=== PATIENT | female | born 1995 | race African-American/Black ===

== ENCOUNTER 2023-09-01 07:13 | Inpatient (IN) | payer OTHER ==
[2023-09-01 08:26] VITALS: BMI 43.9
[2023-09-01 08:31] LABS: BASO % 0.2 % (0-2.0); EOS % 0.7 % (0-4.5); HEMATOCRIT 35.1 % (32.4-45.2); LYMPH % 22.4 % (8-40); MCH 32.8 pg (25.7-33.7); MCHC 34.2 g/dl (32.0-36.0); MEAN CELL VOLUME 95.9 fl (80-96); MEAN PLT VOLUME 10.3 fl (7.5-11.1); MONO % 7.1 % (3.8-10.2); NEUT % 69.6 % (42.8-82.8); PLATELET COUNT 233 10^3/uL (134-434); RBC 3.66 M/mm3 (3.60-5.2); RDW 13.6 % (11.6-15.6); WHITE BLOOD COUNT 9.5 K/mm3 (4.0-10.0)
[2023-09-01] MEDS: ELECTROLYTE-148 SOLN 1,000 ML IV ONE (08:40)
[2023-09-01 08:42] LABS: INR 1.17 (0.83-1.09); PROTHROMBIN TIME (PATIENT) 13.6 SEC (9.7-13.0)
[2023-09-01 08:57] LABS: POTASSIUM 3.6 mmol/L (3.5-5.1)
[2023-09-01 08:58] LABS: BLOOD UREA NITROGEN 5.6 mg/dL (7-18)
[2023-09-01 09:02] LABS: CREATININE 0.6 mg/dL (0.55-1.3)
[2023-09-01] MEDS: ELECTROLYTE-148 SOLN 1,000 ML IV SCH (09:10)
[2023-09-01 09:17] LABS: ACTIVATED PTT 29.4 SECONDS (25.2-36.5)
[2023-09-01] MEDS ORDERED: OXYTOCIN 30 UNITS in 0.9% NS 30 UNIT/500 ML INFUS.BAG IVPB ONE (09:33)
[2023-09-01] MEDS: OXYTOCIN 30 UNITS in 0.9% NS 30 UNIT/500 ML INFUS.BAG IVPB SCH (10:15)
[2023-09-01] MEDS ORDERED: ELECTROLYTE-148 SOLN 1,000 ML IV SCH ×3 (10:30→20:07)
[2023-09-01 12:12] LABS: HIV INTERPRETATION NEGATIVE (NEGATIVE)
[2023-09-01] MEDS ORDERED: FENTANYL/BUPIVACAINE/NS/PF - PCEA - 50 ML DISP.SYRIN EP ONE (14:11)
[2023-09-01] MEDS ORDERED: FENTANYL CITRATE/PF 50 MCG/ML VIAL ONE ×3 (14:21→19:04)
[2023-09-01] MEDS ORDERED: BUPIVACAINE HCL/PF 0.25% (2.5MG/ML) 10 ML VIAL ONE (14:21)
[2023-09-01] MEDS: FENTANYL/BUPIVACAINE/NS/PF - PCEA - 50 ML DISP.SYRIN EP SCH (14:33)
[2023-09-01] MEDS ORDERED: NALOXONE HCL 0.4 MG/ML VIAL IVPUSH PRN ×2 (14:42→20:07)
[2023-09-01] MEDS ORDERED: OXYTOCIN 20 UNITS in 0.9% NS 20 UNIT/1,000 ML INFUS.BAG IV ONE ×3 (14:44→18:03)
[2023-09-01] MEDS ORDERED: BISACODYL 10 MG SUPP.RECT RC PRN ×4 (14:59→20:07)
[2023-09-01] MEDS ORDERED: WITCH HAZEL 50% (TUCKS) 40 PAD/JAR PAD TP PRN ×3 (14:59→20:07)
[2023-09-01] MEDS ORDERED: BENZOCAINE 20% 57 GM BOTTLE TP PRN (14:59)
[2023-09-01] MEDS ORDERED: BENZOCAINE 28 GM HEMORRHOIDAL OINTMENT TP PRN ×2 (14:59→20:07)
[2023-09-01] MEDS ORDERED: oxyCODONE HCL 5 MG TABLET PO PRN ×2 (14:59→20:07)
[2023-09-01] MEDS ORDERED: IBUPROFEN 600 MG TABLET (FP) PO PRN (14:59)
[2023-09-01] MEDS ORDERED: ACETAMINOPHEN 325 MG TABLET (FP) PO PRN (14:59)
[2023-09-01] MEDS: OXYTOCIN 20 UNITS in 0.9% NS 20 UNIT/1,000 ML INFUS.BAG IV SCH ×2 (15:16→20:15)
[2023-09-01] MEDS: METHYLERGONOVINE MALEATE 0.2 MG/1 ML AMP IM PRN (15:50)
[2023-09-01] MEDS ORDERED: MISOPROSTOL 200 MCG TABLET ONE (15:54)
[2023-09-01] MEDS: ceFAZolin SODIUM 1 GM VIAL IVPB ONE ×2 (16:00→16:58)
[2023-09-01] MEDS: MISOPROSTOL 200 MCG TABLET PR SCH (16:03)
[2023-09-01] MEDS ORDERED: ceFAZolin SODIUM 1 GM VIAL ONE ×2 (16:04→16:55)
[2023-09-01] MEDS ORDERED: METHYLERGONOVINE MALEATE 0.2 MG/1 ML AMP IM PRN ×2 (17:23→20:07)
[2023-09-01] MEDS: TRANEXAMIC ACID 1000 MG/10 ML VIAL IVPUSH ONE (17:28)
[2023-09-01] MEDS ORDERED: MIDAZOLAM HCL 2 MG/2 ML SINGLE DOSE VIAL ONE (17:42)
[2023-09-01] MEDS ORDERED: ONDANSETRON 4 MG/2 ML VIAL IVPUSH PRN ×2 (18:06→20:07)
[2023-09-01] MEDS ORDERED: SUCCINYLCHOLINE CHLORIDE 200 MG/10 ML SYRINGE ONE (18:09)
[2023-09-01] MEDS ORDERED: LACTATED RINGERS SOLUTION 1,000 ML IV SCH ×2 (18:15→20:07)
[2023-09-01] MEDS ORDERED: PROPOFOL 20 ML ONE ×2 (18:32→19:04)
[2023-09-01] MEDS ORDERED: ONDANSETRON 4 MG/2 ML VIAL ONE (18:41)
[2023-09-01 19:46] LABS: BASO % 0.3 % (0-2.0); EOS % 0.1 % (0-4.5); HEMATOCRIT 36.4 % (32.4-45.2); HEMOGLOBIN 12.3 GM/dL (10.7-15.3); LYMPH % 12.4 % (8-40); MCH 32.4 pg (25.7-33.7); MCHC 33.7 g/dl (32.0-36.0); MEAN PLT VOLUME 10.2 fl (7.5-11.1); MONO % 5.7 % (3.8-10.2); NEUT % 81.5 % (42.8-82.8); PLATELET COUNT 214 10^3/uL (134-434); RBC 3.79 M/mm3 (3.60-5.2); RDW 13.5 % (11.6-15.6); WHITE BLOOD COUNT 13.4 K/mm3 (4.0-10.0)
[2023-09-01] MEDS ORDERED: OXYTOCIN 20 UNITS in 0.9% NS 20 UNIT/1,000 ML INFUS.BAG IV SCH ×2 (20:00→20:07)
[2023-09-01] MEDS ORDERED: OXYTOCIN 30 UNITS in 0.9% NS 30 UNIT/500 ML INFUS.BAG IVPB SCH (20:07)
[2023-09-01] MEDS: METHYLERGONOVINE MALEATE 0.2 MG/1 ML AMP IM SCH (20:15)
[2023-09-02 00:20] VITALS: RESP 18
[2023-09-02] MEDS: PROMETHAZINE HCL 25 MG/1 ML VIAL IVPB ONE ×2 (00:29→00:35)
[2023-09-02] MEDS: MISOPROSTOL 200 MCG TABLET PR SCH (00:30)
[2023-09-02] MEDS: BUTORPHANOL TARTRATE 1 MG/ML VIAL IVPB ONE ×2 (00:33→00:35)
[2023-09-02] MEDS: FENTANYL/BUPIVACAINE/NS/PF - PCEA - 50 ML DISP.SYRIN EP SCH (00:37)
[2023-09-02] MEDS: METHYLERGONOVINE MALEATE 0.2 MG/1 ML AMP IM SCH (00:37)
[2023-09-02 08:39] LABS: BASO % 0.1 % (0-2.0); EOS % 0.5 % (0-4.5); HEMATOCRIT 34.6 % (32.4-45.2); HEMOGLOBIN 11.3 GM/dL (10.7-15.3); LYMPH % 11.3 % (8-40); MCH 31.6 pg (25.7-33.7); MCHC 32.7 g/dl (32.0-36.0); MEAN CELL VOLUME 96.6 fl (80-96); MEAN PLT VOLUME 10.7 fl (7.5-11.1); MONO % 7.8 % (3.8-10.2); NEUT % 80.3 % (42.8-82.8); PLATELET COUNT 210 10^3/uL (134-434); RBC 3.58 M/mm3 (3.60-5.2); RDW 13.5 % (11.6-15.6); WHITE BLOOD COUNT 16.1 K/mm3 (4.0-10.0)
[2023-09-02] MEDS: PRENATAL VITAMINS W/ FOLIC ACID TABLET (FP) PO SCH (09:59)
[2023-09-02] MEDS: FERROUS SO4 325 MG TABLET (FP) PO SCH (09:59)
[2023-09-02] MEDS ORDERED: PRENATAL VITAMINS W/ FOLIC ACID TABLET (FP) PO SCH (10:00)
[2023-09-02] MEDS ORDERED: FERROUS SO4 325 MG TABLET (FP) PO SCH (10:00)
[2023-09-02] MEDS: BENZOCAINE/MENTH/CETYLPYRD CL 1 EACH LOZENGE MM PRN (10:09)
[2023-09-02] MEDS: WITCH HAZEL 50% (TUCKS) 40 PAD/JAR PAD TP PRN (10:09)
[2023-09-02] MEDS: BENZOCAINE 20% 57 GM BOTTLE TP PRN (10:10)
[2023-09-02] MEDS ORDERED: SENNOSIDES/DOCUSATE COMBO (SENNA PLUS) TABLET (UD) PO PRN ×2 (22:00)
[2023-09-03] MEDS: IBUPROFEN 600 MG TABLET (FP) PO PRN (08:14)
[2023-09-03 08:50] VITALS: BP 114/69; PULSE 90; TEMP 97.5
[2023-09-03] MEDS: ACETAMINOPHEN 325 MG TABLET (FP) PO PRN (09:39)
== END 2023-09-03 15:00 | disposition home or self-care (01) | DRG 542 ==
LOC: JLDR 07:13 → J3W 21:00
PROVIDERS: ADMIT Obstetrics & Gynecology; ATTEND Obstetrics & Gynecology
PROC: 10D07Z8 Extraction of Products of Conception, Other, Via Natural or Artificial Opening (ICD-10-PCS; 2023-09-01)
PROC: 0W3R7ZZ Control Bleeding in Genitourinary Tract, Via Natural or Artificial Opening (ICD-10-PCS; 2023-09-01)
PROC: 10E0XZZ Delivery of Products of Conception, External Approach (ICD-10-PCS; principal; 2023-09-01 17:41)
DX: O72.1 Other immediate postpartum hemorrhage (principal); O36.63X0 Maternal care for excessive fetal growth, third trimester, not applicable or unspecified; Z3A.39 39 weeks gestation of pregnancy; Z37.0 Single live birth
CPT/HCPCS: 36415; 80048; 82962; 85025; 85610; 85730; 86780; 86900; 86922; 87389; 94760